=== PATIENT | female | born 1960 | race Caucasian/White ===

== ENCOUNTER 2022-01-09 11:27 | Emergency (ER) | payer MEDICARE, BC ==
[2022-01-09] MEDS ORDERED: BABY ASPIRIN 81 MG CHEW PO ONE (11:42)
--- NOTE | 2022-01-09 11:54 | ERPHSYRPT ---
- History of Present Illness Time Seen by Provider: 01/09/22 11:30 Historian: patient Exam Limitations: no limitations Patient Subjective Stated Complaint: chest pain x few days Triage Nursing Assessment: pt to ED c/o chest pain x few days. was at [place] ED 01/06/22 and evaluated and DC home. has not been able to see psychology professor yet, scheduled for 01/16. was at PCP office for f/u r/t back pain and began to have CP and was referred to ED for eval. rates 5/10 pain that worsens with exersion and reports nausea and lightheadedness with exersion. Physician History: This is a 61-year-old white female who is obese and was sent to our emergency department by Dr. Grayson Sharpe because the patient was experiencing chest pain in the office today after her follow-up visit for back pain. Patient has had substernal, central discomfort/pressure that is nonradiating for the last several days. She was seen at [facility] emergency department on 01/06/2022 work-up was performed and patient was sent home. She has a follow-up appointment with the psychology professor scheduled for 01/16/2022. Patient states her chest pain is worse with exertion and has associated nausea and lightheadedness with exertion. Because of the recurrent chest pain complaint in the office today patient was referred to our emergency department for further evaluation and management. Patient has a history of COPD and degenerative disc disease. She is a former smoker of cigarettes. Timing/Duration: day(s) Quality: aching, pressure Location: substernal, central Chest Pain Radiation: no radiation Severity of Pain-Max: mild Associated Symptoms: No shortness of breath, No cough Prior Chest Pain/Cardiac Workup: recently seen/treated Nitro Today/Relief: no nitro taken today Aspirin Treatment Today: no aspirin today Allergies/Adverse Reactions: adhesive tape Allergy (Verified 01/09/22 11:44) Blisters cephalexin [From Keflex] Allergy (Verified 01/09/22 11:44) Swelling Hx Tetanus, Diphtheria Vaccination/Date Given: Yes Hx Influenza Vaccination/Date Given: Yes Hx Pneumococcal Vaccination/Date Given: No Immunizations Up to Date: Yes Travel Risk - International Travel Have you traveled outside of the country in past 3 weeks: No - Coronavirus Screening Are you exhibiting any of the following symptoms?: No Close contact with a COVID-19 positive Pt in past 14-21 Days: No - Vaccine Status Have you recieved a Covid-19 vaccination: No - Review of Systems Constitutional: No Symptoms Eyes: No Symptoms Ears, Nose, & Throat: No Symptoms Respiratory: No Symptoms Cardiac: Chest Pain Abdominal/Gastrointestinal: No Symptoms Genitourinary Symptoms: No Symptoms Musculoskeletal: No Symptoms Skin: No Symptoms Neurological: No Symptoms Psychological: No Symptoms Endocrine: No Symptoms Hematologic/Lymphatic: No Symptoms Immunological/Allergic: No Symptoms All Other Systems: Reviewed and Negative - Past Medical History Pertinent Past Medical History: Yes Neurological History: Migraines ENT History: Cataracts Cardiac History: Coronary Artery Disease Respiratory History: COPD, Emphysema Endocrine Medical History: No Pertinent History Musculoskeletal History: Arthritis, Degenerative Disk Disease GI Medical History: GERD History: No Pertinent History Psycho-Social History: Anxiety, Depression Female Reproductive Disorders: No Pertinent History - Past Surgical History Past Surgical History: Yes Cardiac: Cardiac Catheterization Gastrointestinal: Cholecystectomy Musculoskeletal: Joint Replacement, Orthopedic Surgery Female Surgical History: Hysterectomy, Section Other Surgical History: R knee, L adrenal gland removed, carpal tunnel release R hand, biopsies, L4-L5 discs removed. - Social History Smoking Status: Never smoker Exposure to second hand smoke: No Drug Use: none Patient Lives Alone: No - Nursing Vital Signs Nursing Vital Signs: Initial Vital Signs Temperature 97.4 F 01/09/22 11:29 Pulse Rate 77 01/09/22 11:29 Respiratory Rate 18 01/09/22 11:29 Blood Pressure 161/93 01/09/22 11:29 O2 Sat by Pulse Oximetry 97 01/09/22 11:29 Pain Scale Pain Intensity 4 - Physical Exam General Appearance: no apparent distress, alert, anxiety, obese Eye Exam: PERRL/EOMI, eyes nml inspection Ears, Nose, Throat Exam: normal ENT inspection, moist mucous membranes Neck Exam: normal inspection, non-tender, supple, full range of motion Respiratory Exam: normal breath sounds, chest tenderness, lungs clear, airway intact, No respiratory distress Cardiovascular Exam: regular rate/rhythm, normal heart sounds, normal peripheral pulses Gastrointestinal/Abdomen Exam: soft, normal bowel sounds, No tenderness Pelvic Exam: not done Rectal Exam: not done Back Exam: normal inspection, normal range of motion, No CVA tenderness, No vertebral tenderness Extremity Exam: normal inspection, normal range of motion, pelvis stable Neurologic Exam: alert, oriented x 3, cooperative, sales vendor II-XII nml as tested, normal mood/affect, nml cerebellar function, nml station & gait, sensation nml Skin Exam: normal color, warm, dry Lymphatic Exam: No adenopathy SpO2 Interpretation: normal SpO2: 97 O2 Delivery: Room Air - Course Nursing assessment & vital signs reviewed: Yes EKG Interpreted by Me: RATE (73), Sinus Rhythm, NORMAL AXIS, NORMAL INTERVALS, NORMAL QRS, NORMAL ST-T, Other (There are PVCs present. There is no acute isc hemic changes. I do not have a comparison twelve-lead EKG available. This is her first visit to our emergency department.) Ordered Tests: Active Orders 24 hr Category Date Time Status Gambreler Helper STAT Care 01/09/22 11:43 Active EKG-ER Only STAT Care 01/09/22 11:42 Active IV Insertion STAT Care 01/09/22 11:42 Active Pulse Oximetry (ED) STAT Care 01/09/22 11:42 Active CHEST 1 VIEW (PORTABLE) Stat Exams 01/09/22 11:43 Completed CBC W DIFF Stat Lab 01/09/22 11:50 Completed CMP Stat Lab 01/09/22 11:50 Completed D-DIMER QUANTITATIVE Stat Lab 01/09/22 11:50 Completed PROTIME WITH INR Stat Lab 01/09/22 11:50 Completed TROPONIN Q3H Lab 01/09/22 11:50 Completed TROPONIN Q3H Lab 01/09/22 14:45 Ordered TROPONIN Q3H Lab 01/09/22 17:45 Ordered TROPONIN Q3H Lab 01/09/22 20:45 Ordered TROPONIN Q3H Lab 01/09/22 23:45 Ordered Medication Summary Discontinued Medications Generic Name Dose Route Start Last Admin Trade Name Jose Luisq PRN Reason Stop Dose Admin Aspirin 324 mg 01/09/22 11:42 01/09/22 11:49 Aspirin 81 Mg Tab.Chew PO 01/09/22 11:43 324 mg STAT ONE Administration Lab/Rad Data: Laboratory Result Diagrams 01/09/22 11:50 01/09/22 11:50 Laboratory Results 01/09/22 01/09/22 01/09/22 Range/Units 11:50 11:50 11:50 WBC (4.0-10.5) x10^3/uL RBC (4.1-5.4) x10^6/uL Hgb (12.0-16.0) g/dL Hct (35-47) % MCV (78-100) fL MCH (26-32) pg MCHC (32-36) g/dL RDW (11.5-14.0) % Plt Count (150-450) x10^3/uL MPV (7.5-11.0) fL Gran % (36.0-66.0) % Immature Gran % (Auto) (0.00-0.4) % Nucleat RBC Rel Count (0.00-0.1) % Eos # (Auto) (0-0.5) x10^3/uL Immature Gran # (Auto) (0.00-0.03) x10^3u/L Absolute Lymphs (auto) (1.0-4.6) x10^3/uL Absolute Monos (auto) (0.0-1.3) x10^3/uL Absolute Nucleated RBC (0.00-0.01) x10^3u/L Lymphocytes % (24.0-44.0) % Monocytes % (0.0-12.0) % Eosinophils % (0.00-5.0) % Basophils % (0.0-0.4) % Absolute Granulocytes (1.4-6.9) x10^3/uL Basophils # (0-0.4) x10^3/uL PT 10.3 (9.4-12.5) SECONDS INR 0.97 (0.8-3.0) D-Dimer 0.36 (0.0-0.50) mg/L Sodium 136 L (137-145) mmol/L Potassium 4.0 (3.5-5.1) mmol/L Chloride 103 (98-107) mmol/L Carbon Dioxide 27 (22-30) mmol/L Anion Gap 9.6 (5-15) MEQ/L BUN 18 H (7-17) mg/dL Creatinine 0.85 (0.52-1.04) mg/dL Estimated GFR > 60.0 ML/MIN Glucose 106 (74-106) mg/dL Calcium 9.5 (8.4-10.2) mg/dL Total Bilirubin 0.40 (0.2-1.3) mg/dL AST 23 (14-36) U/L ALT 15 (0-35) U/L Alkaline Phosphatase 108 (38-126) U/L Troponin I < 0.012 (0.000-0.034) ng/mL Serum Total Protein 7.1 (6.3-8.2) g/dL Albumin 4.1 (3.5-5.0) g/dL 01/09/22 Range/Units 11:50 WBC 4.6 (4.0-10.5) x10^3/uL RBC 3.55 L (4.1-5.4) x10^6/uL Hgb 12.3 (12.0-16.0) g/dL Hct 36.9 (35-47) % MCV 103.9 H (78-100) fL MCH 34.6 H (26-32) pg MCHC 33.3 (32-36) g/dL RDW 13.5 (11.5-14.0) % Plt Count 176 (150-450) x10^3/uL MPV 9.9 (7.5-11.0) fL Gran % 56.3 (36.0-66.0) % Immature Gran % (Auto) 0.2 (0.00-0.4) % Nucleat RBC Rel Count 0.0 (0.00-0.1) % Eos # (Auto) 0.10 (0-0.5) x10^3/uL Immature Gran # (Auto) 0.01 (0.00-0.03) x10^3u/L Absolute Lymphs (auto) 1.38 (1.0-4.6) x10^3/uL Absolute Monos (auto) 0.51 (0.0-1.3) x10^3/uL Absolute Nucleated RBC 0.00 (0.00-0.01) x10^3u/L Lymphocytes % 29.9 (24.0-44.0) % Monocytes % 11.0 (0.0-12.0) % Eosinophils % 2.2 (0.00-5.0) % Basophils % 0.4 (0.0-0.4) % Absolute Granulocytes 2.60 (1.4-6.9) x10^3/uL Basophils # 0.02 (0-0.4) x10^3/uL PT (9.4-12.5) SECONDS INR (0.8-3.0) D-Dimer (0.0-0.50) mg/L Sodium (137-145) mmol/L Potassium (3.5-5.1) mmol/L Chloride (98-107) mmol/L Carbon Dioxide (22-30) mmol/L Anion Gap (5-15) MEQ/L BUN (7-17) mg/dL Creatinine (0.52-1.04) mg/dL Estimated GFR ML/MIN Glucose (74-106) mg/dL Calcium (8.4-10.2) mg/dL Total Bilirubin (0.2-1.3) mg/dL AST (14-36) U/L ALT (0-35) U/L Alkaline Phosphatase (38-126) U/L Troponin I (0.000-0.034) ng/mL Serum Total Protein (6.3-8.2) g/dL Albumin (3.5-5.0) g/dL - Progress Progress: improved, re-examined Air Movement: good Progress Note: 01/09/22 12:52 Chest x-ray shows a hyperinflated nonacute chest with no new or acute findings. 01/09/22 13:03 Medical decision making: This patient had a negative cardiac work-up on 01/06/2022. Her cardiac work-up today is also negative for any acute abnormality. Patient be discharged to home and will follow up with her psychology professor appointment on 01/16/2022. 01/09/22 14:06 I reviewed the labs from the patient's visit on 01/06/[address] [facility]. She has now had 3 normal troponin levels in the last 4 days. She has no chest pain at this time. She has a follow-up appointment with her psychology professor on 01/16/2022. We will discharge her to home. I did inform her that there may be a possibility of moving her appointment up earlier. She is going to call the psychology professor office at this time to move the appointment up earlier. Blood Culture(s) Obtained: Yes Antibiotics given: No Counseled pt/family regarding: lab results, diagnosis, need for follow-up, rad results - Departure Departure Disposition: Home Clinical Impression: Non-cardiac chest pain Condition: Stable Critical Care Time: No Referrals: FABRIZIO SHARPE [Primary Care Provider] - Follow up/PCP as directed Additional Instructions: Take all your medication as prescribed. Follow-up with your psychology professor at your appointment time on 01/16/2022. Return to the emergency department if symptoms worsen.
[2022-01-09 11:58] LABS: Basophil (Absolute #) 0.02 x10^3/uL (0-0.4); Eosinophil % 2.2 % (0.00-5.0); Hematocrit 36.9 % (35-47); Hemoglobin 12.3 g/dL (12.0-16.0); Lymphocyte (Absolute #) 1.38 x10^3/uL (1.0-4.6); Lymphocytes % 29.9 % (24.0-44.0); Mean Cell Volume 103.9 fL (78-100); Mean Corpuscular Hemoglobin 34.6 pg (26-32); Mean Corpuscular Hgb Concent. 33.3 g/dL (32-36); Mean Platelet Volume 9.9 fL (7.5-11.0); Monocyte (Absolute #) 0.51 x10^3/uL (0.0-1.3); Neutrophil % 56.3 % (36.0-66.0); Platelet Count 176 x10^3/uL (150-450); Red Blood Count 3.55 x10^6/uL (4.1-5.4); Red Cell Distribution Width 13.5 % (11.5-14.0); White Blood Count 4.6 x10^3/uL (4.0-10.5)
[2022-01-09 12:11] LABS: ALBUMIN 4.1 g/dL (3.5-5.0); ALKALINE PHOSPHATASE 108 U/L (38-126); ANION GAP 9.6 MEQ/L (5-15); BLOOD UREA NITROGEN 18 mg/dL (7-17); CHLORIDE 103 mmol/L (98-107); Calcium 9.5 mg/dL (8.4-10.2); Carbon Dioxide 27 mmol/L (22-30); Creatinine 1 0.85 mg/dL (0.52-1.04); D-DIMER QUANTITATIVE 0.36 mg/L (0.0-0.50); EST GLOMERULAR FILTRATION RATE > 60.0 ML/MIN; Glucose 106 mg/dL (74-106); INR 0.97 (0.8-3.0); PROTIME 10.3 SECONDS (9.4-12.5); SGOT/AST 23 U/L (14-36); SGPT/ALT 15 U/L (0-35); SODIUM 136 mmol/L (137-145); Total Protein 7.1 g/dL (6.3-8.2)
--- NOTE | 2022-01-09 12:19 | XRAY ---
Indication: Chest pain. Comparison: None Portable chest hyperinflated and clear. Heart not enlarged with a few left hilar calcified nodes and left central venous access catheter. Bony thorax intact with mild osteopenia and degenerative changes. Impression: Nonacute hyperinflated chest with chronic features.
[2022-01-09 12:53] VITALS: O2SAT 97
[2022-01-09 14:06] VITALS: BP 132/78; PULSE 56
== END 2022-01-09 14:22 | disposition home or self-care (01) ==
LOC: ED 11:27
DX: R07.89 Other chest pain (principal); R11.0 Nausea; R42 Dizziness and giddiness; J44.9 Chronic obstructive pulmonary disease, unspecified; Z28.310 Unvaccinated for COVID-19
CPT/HCPCS: 36000; 36415; 71045; 80053; 84484; 85025; 85379; 85610; 93005; 93041; 94760; 99284; A9270-GY